=== PATIENT | female | born 1975 | race Caucasian/White ===

== ENCOUNTER → 2020-04-07 | Outpatient (CLI) | payer OTHER | LOC: ECHO 12:00 | DX: I50.9 Heart failure, unspecified (principal); M25.569 Pain in unspecified knee; M17.11 Unilateral primary osteoarthritis, right knee; I51.7 Cardiomegaly; I27.20 Pulmonary hypertension, unspecified; I08.1 Rheumatic disorders of both mitral and tricuspid valves | CPT/HCPCS: ECHO; 73562; 93306 ==

== ENCOUNTER → 2020-04-15 | Outpatient (CLI) | payer OTHER | LOC: HEART 5 08:48 | DX: J44.9 Chronic obstructive pulmonary disease, unspecified (principal); F17.210 Nicotine dependence, cigarettes, uncomplicated | CPT/HCPCS: 94010 ==

== ENCOUNTER → 2020-05-05 | Outpatient (CLI) | payer OTHER | LOC: CT 13:01 | DX: R79.1 Abnormal coagulation profile (principal) | CPT/HCPCS: 36415; 71275; 82565; Q9967 ==